=== PATIENT | male | born 1970 | race Caucasian/White ===

== ENCOUNTER → 2017-11-02 | Outpatient (CLI) | payer BC ==
[~2017-11-02] MED LIST: NORCO 5-325 TA1 EACH ORAL
--- NOTE | 2017-11-02 19:32 | Diagnostic Imaging Report ---
Indication: COUGH Technique: MRI of the chest was performed without and with intravenous contrast a multiplanar, multisequence acquisition. The following sequences were obtained: Large [id number] 3 plane localizer; axial noncontrast 2-D fiesta fat sat and axial black blood images of the chest; sagittal coronal 2-D chest and coronal SS FSE; post contrast axial and coronal images of the chest. 3-D reconstructions of the thoracic vasculature also created. Comparison: None. Findings: These note that evaluation of the lung parenchyma and soft tissues of the mediastinum is limited on MRI. CT would provide a more sensitive evaluation. Large [id number] 3 plane localizer images demonstrate a approximately 4.9 cm simple appearing cyst in the midpole of the left kidney. Additionally there is susceptibility artifact in the region of the lower lumbar spine suggesting spinal hardware, likely prior posterior instrumented fusion. Correlation with surgical history is recommended. The thoracic aorta is normal in caliber. Conventional branching anatomy of the aortic arch is noted. The imaged portions of the bilateral common carotid and subclavian arteries are unremarkable in appearance. Imaged portions of the abdominal aorta are normal in caliber. There is suggestion of a replaced hepatic artery to the superior mesenteric artery, a normal anatomic variant. Bilateral renal arteries appear normal in caliber. No definite focal lung parenchymal abnormality is identified. There is no evidence of pleural effusion. No appreciable hilar or mediastinal lymphadenopathy. Some prominent anterior mediastinal fat is noted. IMPRESSION: * Thoracic aorta normal in caliber with conventional branching anatomy of the aortic arch. No evidence of thoracic aortic aneurysm. 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 * No definite parenchymal abnormality noted in the lungs or definite mediastinal abnormality. Please note that the lung parenchyma and mediastinum are better evaluated on contrast-enhanced CT. Additional findings as above.
== END | disposition home or self-care (01) ==
LOC: MRI 12:06
DX: R05 Cough (principal); N28.1 Cyst of kidney, acquired
CPT/HCPCS: A9585; C8909; 71555